=== PATIENT | female | born 1980 | race Caucasian/White ===

== ENCOUNTER → 2016-06-26 | Outpatient (CLI) | payer BC ==
[2005-10-06 07:50] VITALS: TEMP 98
== END ==
LOC: COL.RAD 06-20 09:45
DX: E03.8 Other specified hypothyroidism (principal); Z79.890 Hormone replacement therapy; E55.9 Vitamin D deficiency, unspecified; R53.83 Other fatigue

== ENCOUNTER → 2018-06-11 | Outpatient (CLI) | payer SELFPAY ==
[2005-10-06 07:50] VITALS: TEMP 98
== END ==
LOC: MC.RAD 07:30
DX: N63.14 Unspecified lump in the right breast, lower inner quadrant (principal)